=== PATIENT | male | born 1995 | race Caucasian/White ===

== ENCOUNTER 2024-07-31 19:38 | Emergency (ER) | payer BC ==
[2024-07-31] MEDS ORDERED: Boostrix 0.5 ML (Tdap) VIAL (>/=7 yrs of age) ONE (19:53)
[2024-07-31] MEDS ORDERED: CEFAZOLIN 1 GM VIAL ONE (20:13)
== END 2024-07-31 22:55 | disposition short-term general hospital (02) ==
LOC: NAV ERS 19:38
DX: S56.422A Laceration of extensor muscle, fascia and tendon of left index finger at forearm level, initial encounter (principal); Z23 Encounter for immunization; W26.8XXA Contact with other sharp object(s), not elsewhere classified, initial encounter
CPT/HCPCS: 90471; 90715; 96365; J0690

== ENCOUNTER 2024-11-22 15:21 | Emergency (ER) | payer BC | END 2024-11-22 16:24 | disposition home or self-care (01) | LOC: NAV ERS 15:21 | DX: S50.11XA Contusion of right forearm, initial encounter (principal); W18.30XA Fall on same level, unspecified, initial encounter; Y93.51 Activity, roller skating (inline) and skateboarding | CPT/HCPCS: 99283 ==